=== PATIENT | female | born 1950 ===

== ENCOUNTER 2025-04-16 04:11 | Outpatient (CLI) | payer MEDICARE, SELFPAY ==
[2025-04-16 08:35] LABS: Abs Immature Grans 0.01 10^3/uL (0.0-0.06); HCT 38.4 % (36.0-46.0); HGB 12.7 g/dL (11.2-15.7); Immature Grans % 0.2 %; MCH 30.1 pg (27.0-33.0); MCHC 33.1 % (32.0-36.0); MCV 91 fL (80-95); MPV 9.0 fL (8.0-11.0); Platelet Count 297 10^3/uL (130-400); RBC 4.22 10^6/uL (3.93-5.22); RDW 11.9 % (11.7-14.6); RDW-SD 39.8 fL; WBC 5.53 10^3/uL (4.4-10.8)
[2025-04-16 08:57] LABS: ALT 24 U/L (14-59); AST 21 U/L (15-37); Albumin 4.2 g/dL (3.4-5.0); Alkaline Phosphatase 78 U/L (46-116); Anion Gap 7.4 mmol/L (3-11); BUN 15 mg/dL (7-18); Bilirubin, Total 0.5 mg/dL (0.2-1.0); CO2 29.6 mmol/L (21.0-32.0); Calcium 9.4 mg/dL (8.5-10.1); Chloride 103 mmol/L (98-107); Glucose 101 mg/dL (74-106); Magnesium 2.1 mg/dL (1.8-2.4); Potassium 4.5 mmol/L (3.5-5.1); Sodium 140 mmol/L (136-145); Total Protein 7.5 g/dL (6.4-8.2)
== END 2025-04-16 04:12 | disposition home or self-care (01) ==
LOC: LBO 04:11
PROVIDERS: Visit Provider Nurse Practitioner Family
DX: C50.411 Malignant neoplasm of upper-outer quadrant of right female breast (principal); Z17.1 Estrogen receptor negative status [ER-]
CPT/HCPCS: 36415; 80053; 83735; 85025

== ENCOUNTER 2025-04-23 03:10 | Outpatient (CLI) | payer MEDICARE, SELFPAY ==
--- NOTE | 2025-04-23 | DI.US_ITS ---
APPROVED REPORT EXAM: Comprehensive 2D, Doppler, and color-flow Echocardiogram Patient Location: Out-Patient Transportation Associate: Judi Chen RDCS (AE) Indications: Breast CA, High risk medication use Other Information Study Quality: Good Conclusion Normal left ventricular wall thickness and chamber size. Ejection fraction is 55 to 60%. Wall motion is normal Normal right ventricular size and function Left atrium is mildly dilated. Right atrial size is normal There are no structural valvular abnormalities Trace aortic and tricuspid regurgitation Mild mitral regurgitation Estimated right ventricular systolic pressure is 28 mmHg Wall motion Left Ventricle The left ventricle is normal size. The left ventricular systolic function is normal. The left ventricular ejection fraction is within the normal range. Global longitudinal strain 19.9%. There is normal left ventricular wall thickness. There is normal LV segmental wall motion. There is no ventricular se ptal defect visualized. LVEF is 57%. Right Ventricle The right ventricle is normal size. The right ventricular systolic function is normal. Atria Left atrium is mildly dilated. The right atrium size is normal. The interatrial septum is intact with no evidence for an atrial septal defect. Aortic Valve The aortic valve is normal in structure. Aortic valve is trileaflet. There is no aortic valvular stenosis. Trace aortic regurgitation. Mitral Valve The mitral valve is normal in structure. No evidence of mitral valve stenosis. Mild mitral regurgitation. Tricuspid Valve The tricuspid valve is normal in structure. There is no tricuspid valve stenosis. Trace tricuspid regurgitation. The RVSP is 27.9 mmHg. Pulmonic Valve The pulmonary valve is normal in structure. There is no pulmonic valvular stenosis. There is no pulmonic valvular regurgitation. Great Vessels The aortic root is normal in size. The ascending aorta is normal in size. Aortic arch is normal in caliber. IVC is normal in size and collapses >50% with inspiration. Pericardium There is no pericardial effusion. 2D Dimensions IVSD d PLAX 0.80 cm F: 0.6-1.0 Ao Root d 3.28 cm F: 2.7 - 3.3 LVPW d PLAX 0.80 cm F: 0.6 - 1.0 Ao Asc Diam d 3.08 cm F: 2.3 - 3.1 LVID d PLAX 4.11 cm F: 3.8 - 5.2 LVDs 2.90 cm F: 2.2 - 3.5 LV EF Teichholz 57.2 % FS 29.68 % LV EDV (Teich) 74.6 mL LV ESV (Teich) 31.9 mL M-Mode TAPSE 1.94 cm (M/F) >1.7 Auto EF LV EDV A4C 67.3 mL LV EDV A2C 86.9 mL LV EDV BP 77.4 mL LV ESV A4C 31.9 mL LV ESV A2C 37.7 mL LV ESV BP 34.5 mL LVEF(%) A4C 52.7 % LVEF(%) A2C 56.6 % LVEF(%) BP 55.5 % LV SV A4C 35.4 ml LV SV A2C 49.2 ml LV SV BP 43.0 ml LV CO A4C 2.2 L/min LV CO A2C 3.1 L/min LV CO BP 2.6 L/min HR A4C 62.29 BPM HR A2C 62.83 BPM LV EDV Index (BP) LV Strain Long Pk Overal Avg (s) 19.88 LA Volume LA Length A4C 4.4 cm LA Length A2C 4.3 cm LA Area A4C s 17.29 cm2 LA Area A2C s 14.47 cm2 LA Vol A4C A-L 57.36 mL LA Vol A2C A-L 41.36 mL LA Vol Biplane A-L 49.4 mL LA Vol/BSA A4C A-L LA Vol/BSA A2C A-L LA Vol/BSA BP A-L 35.3 mL/m2 LA Vol A4C MOD 52.9 mL LA Vol A2C MOD 39.6 mL LA Vol BP MOD 45.6 mL RA Volume RA Area A4C 11.1 cm2 RA ESV A4C (A-L) 25.8mL RA Vol/BSA A4C A-L RA Length A4C 4.1 cm RA ESV A4C (MOD) 25.1mL LV Diastology MV E' medial 0.053 (>0.07 m/s) MV E Vmax 0.57 (0.4-1.3 m/s) MV E/E' MED 10.91 (<14) MV A Vmax 0.85 (0.4-1.3 m/s) MV E' lateral 0.062 (>0.1 m/s) E/A Ratio 0.7 MV E/E' LAT 9.32 (<14) MV E' Average 0.057 m/s MV E/E'(average) 10.05 Aortic Valve AoV Vmax 1.28 m/s LVOT Vmax 1.07 m/s AoV Peak Grad 33.7 mmHg LVOT Peak Grad 4.6 mmHg AoV Area (Vmax) 2.02 cm2 LVOT VTI 0.250 m AoV VTI 0.317 m LVOT Mean Grad 2.5 mmHg AoV Mean Ash. 0.89 m/s LVOT SV 60.75 mL AoV Mean Grad 3.7 mmHg LVOT Diam s 1.75 cm AoV Area (VTI) 1.92 cm2 AV Regurg Peak Gr. 6.60 mmHg Velocity Ratio 0.84 AR Decel Morton 2.1m/sec2 AR DT 1869 msec AR PHT 542 msec AR Vmax 3.90 m/s Mitral Valve MV DT 164 (160-240 msec) MV Vmax TIPS 0.83 m/s MV Mean Grad 1.1 (<2mmHg) MV VTI 0.289 m Pulmonary Valve PV Vmax 1.06 (0.5-1.5 m/s) RVOT Vmax 0.71 m/s PV Peak Grad 4.5 mmHg RVOT Peak Gr. 2.0 mmHg PV Mean Ash 0.68 m/s RVOT VTI 0.167 m PV Mean Grad 2.2 mmHg RVOT Mean Gr. 1.3 mmHg Tricuspid Valve RA Pressure 3.00 mmHg TR Vmax 2.50 m/s TV S' 0.13 m/s TR Peak Grad 24.9 mmHg RVSP (TR) 27.9 mmHg
== END 2025-04-23 03:30 ==
PROVIDERS: PCP Family Medicine; Visit Provider Nurse Practitioner Family
DX: I08.2 Rheumatic disorders of both aortic and tricuspid valves (principal)
CPT/HCPCS: 93306

== ENCOUNTER 2025-05-21 00:10 | Outpatient (RCR) | payer MEDICARE, SELFPAY ==
[2025-05-07 11:22] LABS: Abs Immature Grans 0.77 10^3/uL (0.0-0.06); HCT 32.2 % (36.0-46.0); HGB 10.7 g/dL (11.2-15.7); MCH 29.9 pg (27.0-33.0); MCHC 33.2 % (32.0-36.0); MCV 90 fL (80-95); MPV 8.9 fL (8.0-11.0); Platelet Count 260 10^3/uL (130-400); RBC 3.58 10^6/uL (3.93-5.22); RDW 12.3 % (11.7-14.6); RDW-SD 40.2 fL; WBC 19.81 10^3/uL (4.4-10.8)
[2025-05-07 11:37] LABS: Immature Grans % 0.0 %
[2025-05-07 11:38] LABS: ALT 28 U/L (14-59); AST 24 U/L (15-37); Albumin 3.5 g/dL (3.4-5.0); Alkaline Phosphatase 116 U/L (46-116); Anion Gap 9.6 mmol/L (3-11); BUN 16 mg/dL (7-18); Bilirubin, Total 0.2 mg/dL (0.2-1.0); CO2 25.4 mmol/L (21.0-32.0); Calcium 8.6 mg/dL (8.5-10.1); Chloride 105 mmol/L (98-107); Estimated GFR 31.27 (mL/min/1.73m2); Glucose 126 mg/dL (74-106); Magnesium 1.3 mg/dL (1.8-2.4); Potassium 3.4 mmol/L (3.5-5.1); Sodium 140 mmol/L (136-145); Total Protein 7.2 g/dL (6.4-8.2)
[2025-05-07 11:39] LABS: RBC Morphology Normal
[2025-05-14] MEDS: Normal Saline Flush 10 ML SYR IVP (09:17)
[2025-05-14 09:34] LABS: Abs Immature Grans 0.06 10^3/uL (0.0-0.06); HCT 28.6 % (36.0-46.0); HGB 9.5 g/dL (11.2-15.7); Immature Grans % 0.8 %; MCH 30.4 pg (27.0-33.0); MCHC 33.2 % (32.0-36.0); MCV 91 fL (80-95); MPV 9.2 fL (8.0-11.0); Platelet Count 324 10^3/uL (130-400); RBC 3.13 10^6/uL (3.93-5.22); RDW 12.9 % (11.7-14.6); RDW-SD 42.0 fL; WBC 7.82 10^3/uL (4.4-10.8)
[2025-05-14 09:58] LABS: Magnesium 1.4 mg/dL (1.6-2.6)
[2025-05-14 09:59] LABS: ALT 17 U/L (10-49); AST 22 U/L (<34); Albumin 4.1 g/dL (3.4-5.0); Alkaline Phosphatase 82 U/L (46-116); Anion Gap 7.6 mmol/L (3-11); BUN 11 mg/dL (9-23); Bilirubin, Total 0.40 mg/dL (0.2-1.2); CO2 29.4 mmol/L (20.0-31.0); Calcium 9.4 mg/dL (8.3-10.6); Chloride 104 mmol/L (98-107); Glucose 113 mg/dL (74-106); Potassium 4.0 mmol/L (3.5-5.1); Sodium 141 mmol/L (136-145); Total Protein 6.5 g/dL (5.7-8.2)
[2025-05-21] MEDS: Normal Saline Flush 10 ML SYR IVP (08:41)
[2025-05-21 08:44] LABS: Abs Immature Grans 0.10 10^3/uL (0.0-0.06); HCT 27.7 % (36.0-46.0); HGB 9.3 g/dL (11.2-15.7); MCH 30.5 pg (27.0-33.0); MCHC 33.6 % (32.0-36.0); MCV 91 fL (80-95); MPV 10.1 fL (8.0-11.0); Platelet Count 195 10^3/uL (130-400); RBC 3.05 10^6/uL (3.93-5.22); RDW 13.0 % (11.7-14.6); RDW-SD 42.9 fL; WBC 7.29 10^3/uL (4.4-10.8)
[2025-05-21 09:02] LABS: Magnesium 1.5 mg/dL (1.6-2.6)
[2025-05-21 09:03] LABS: ALT 28 U/L (10-49); AST 30 U/L (<34); Albumin 4.1 g/dL (3.4-5.0); Alkaline Phosphatase 116 U/L (46-116); Anion Gap 5.8 mmol/L (3-11); BUN 9 mg/dL (9-23); Bilirubin, Total 0.40 mg/dL (0.2-1.2); CO2 26.2 mmol/L (20.0-31.0); Calcium 9.8 mg/dL (8.3-10.6); Chloride 106 mmol/L (98-107); Glucose 99 mg/dL (74-106); Potassium 4.0 mmol/L (3.5-5.1); Sodium 138 mmol/L (136-145); Total Protein 6.6 g/dL (5.7-8.2)
[2025-05-21 09:12] LABS: Immature Grans % 0.0 %
[2025-05-21 09:13] LABS: Anisocytosis 1+
== END 2025-05-30 23:59 | disposition home or self-care (01) ==
LOC: INF 00:10
PROVIDERS: PCP Family Medicine; Visit Provider Nurse Practitioner Family
DX: C50.411 Malignant neoplasm of upper-outer quadrant of right female breast (principal); Z45.2 Encounter for adjustment and management of vascular access device
CPT/HCPCS: 36591; 80053; 96523; 83735; 85025

== ENCOUNTER 2025-06-04 01:03 | Outpatient (RCR) | payer MEDICARE, SELFPAY ==
[2025-06-04 08:44] LABS: Abs Immature Grans 0.06 10^3/uL (0.0-0.06); HCT 24.9 % (36.0-46.0); HGB 8.3 g/dL (11.2-15.7); Immature Grans % 0.7 %; MCH 30.7 pg (27.0-33.0); MCHC 33.3 % (32.0-36.0); MCV 92 fL (80-95); MPV 9.2 fL (8.0-11.0); Platelet Count 135 10^3/uL (130-400); RBC 2.70 10^6/uL (3.93-5.22); RDW 14.5 % (11.7-14.6); RDW-SD 47.7 fL; WBC 8.31 10^3/uL (4.4-10.8)
[2025-06-04] MEDS: Normal Saline Flush 10 ML SYR IVP (09:02)
[2025-06-04 09:10] LABS: Magnesium 1.2 mg/dL (1.6-2.6)
[2025-06-04 09:12] LABS: ALT 16 U/L (10-49); AST 22 U/L (<34); Albumin 4.0 g/dL (3.2-5.0); Alkaline Phosphatase 88 U/L (46-116); Anion Gap 8.9 mmol/L (3-11); BUN 12 mg/dL (9-23); Bilirubin, Total 0.40 mg/dL (0.2-1.2); CO2 26.1 mmol/L (20.0-31.0); Calcium 8.5 mg/dL (8.3-10.6); Chloride 107 mmol/L (98-107); Glucose 105 mg/dL (74-106); Potassium 3.7 mmol/L (3.5-5.1); Sodium 142 mmol/L (136-145); Total Protein 6.4 g/dL (5.7-8.2)
== END 2025-06-30 23:59 | disposition home or self-care (01) ==
LOC: INF 01:03
PROVIDERS: PCP Family Medicine; Visit Provider Nurse Practitioner Family
DX: C50.411 Malignant neoplasm of upper-outer quadrant of right female breast (principal); Z17.1 Estrogen receptor negative status [ER-]; Z45.2 Encounter for adjustment and management of vascular access device
CPT/HCPCS: 36591; 80053; 83735; 85025

== ENCOUNTER 2025-06-28 00:36 | Outpatient (RCR) | payer MEDICARE, SELFPAY ==
[2025-06-28 08:47] VITALS: BP 126/64; PULSE 71; RESP 16; TEMP 36.9; O2SAT 95
[2025-06-28 08:59] VITALS: BP 126/64; PULSE 74; RESP 16; TEMP 36.9; O2SAT 95
[2025-06-28 09:15] VITALS: BP 136/65; PULSE 69; RESP 16; TEMP 37.1; O2SAT 98
[2025-06-28 09:35] VITALS: BP 135/69; PULSE 67; RESP 16; TEMP 36.9; O2SAT 97
[2025-06-28 10:05] VITALS: BP 137/64; PULSE 67; RESP 16; TEMP 36.9; O2SAT 97
[2025-06-28 10:44] VITALS: BP 152/66; PULSE 70; RESP 16; TEMP 37.1; O2SAT 97
[2025-06-28] MEDS: Normal Saline Flush 10 ML SYR IVP (12:37)
== END 2025-06-30 23:59 | disposition home or self-care (01) ==
LOC: INF 00:36
PROVIDERS: PCP Family Medicine; Visit Provider Family Medicine
DX: D64.81 Anemia due to antineoplastic chemotherapy (principal); C50.511 Malignant neoplasm of lower-outer quadrant of right female breast; Z17.1 Estrogen receptor negative status [ER-]; T45.1X5A Adverse effect of antineoplastic and immunosuppressive drugs, initial encounter
CPT/HCPCS: 36430; 86850; 86900; 86901; 86920; 96365; 96366; P9016